=== PATIENT | male | born 1980 | race African-American/Black ===

== ENCOUNTER 2017-01-27 15:11 | Emergency (ER) | payer SELFPAY ==
[~2017-01-27] VITALS: Ht 190.5 cm; Wt 127.0 kg
[2017-01-27 15:42] VITALS: BP 142/89
== END 2017-01-27 17:45 | disposition home or self-care (01) ==
LOC: ER 17:28
DX: R21 Rash and other nonspecific skin eruption (principal)
CPT/HCPCS: 99283